=== PATIENT | female | born 1970 | race Caucasian/White ===

== ENCOUNTER 2016-11-12 19:59 | Emergency (ER) | payer OTHER ==
[~2016-11-12] VITALS: Ht 160 cm; Wt 89.4 kg
[2016-11-12 20:15] VITALS: BP 128/80
--- NOTE | 2016-11-12 21:25 | ED GI/GU/ABDOMINAL COMPLAINT ---
History of Present Illness General Chief Complaint: Female Urogenital Problems Stated Complaint: " PERIOD WON'T STOP , IT'S BEEN 2WEEKS" Source: patient, friend Exam Limitations: no limitations Vital Signs & Intake/Output Vital Signs & Intake/Output Vital Signs Date Time Temp Pulse Resp B/P Pulse O2 O2 Flow FiO2 Ox Delivery Rate 11/125 Room Air 11/12 2014 97.0 100 15 128/80 100 Room Air Allergies Coded Allergies: No Known Allergies (10/23/15) Triage Note: PT TO ED FOR VAGINAL BLEEDING X 2 WEEKS. STATES SHE HAD HER "NORMAL PERIOD FOR A WEEK AND NOW ITS JUST LIGHT VAGINAL BLEEDING" REPORTING SHE USES APPROX "LESS THAN ONE PAD A DAY". HAS NOT CALLED HER OB. NO ABD PAIN, NO NAUSEA, NO VOMITING. PT REPORTS SHE LOOKED HER SYMPTOMS UP ON THE INTERNET "AND CAME BECASUE IM SO WORRIED NOW" Triage Nurses Notes Reviewed? yes ? n Is pt currently ? No HPI: Patient is a 46-year-old female, , presents complaining of vaginal bleeding. Patient reports that she has been having vaginal bleeding for approximately 2 weeks. 2 weeks ago patient began with her normal menstrual period. The bleeding the patient normally experiences with her period ended approximately 5- 6 days ago but she has continued with light vaginal bleeding since then. Patient going through less than one pad per day. Patient has not seen a profile mill operator tape control in over 20 years. Patient's mother had a hysterectomy, so she does not know when her mother with gone through menopause. Pain is 0/10. Patient denies abdominal pain, pelvic pain, lightheadedness, weakness. (SHEYLA LIMON) Past History Travel History Traveled to [place] past 21 day No Medical History Any Pertinent Medical History? see below for history Neurological: NONE EENT: NONE Cardiovascular: NONE Respiratory: NONE Gastrointestinal: NONE Hepatic: NONE Renal: NONE Musculoskeletal: NONE Psychiatric: NONE Endocrine: NONE Blood Disorders: NONE Cancer(s): NONE WELL SERVICE FLOORPERSON/Reproductive: TUBAL LIGATION Surgical History Surgical History: tubal ligation Psychosocial History What is your primary language Vietnamese Tobacco Use: Never used ETOH Use: occasional use Illicit Drug Use: denies illicit drug use Family History Hx Contributory? No (SHEYLA LIMON) Review of Systems Review of Systems Constitutional: Denies: chills, fever. EENTM: Reports: no symptoms. Respiratory: Denies: cough, short of breath. Cardiovascular: Denies: chest pain, syncope. GI: Denies: abdominal pain, nausea, vomiting. Genitourinary: Reports: see HPI. Musculoskeletal: Reports: no symptoms. Skin: Reports: no symptoms. Neurological/Psychological: Reports: see HPI. Hematologic/Endocrine: Reports: see HPI. Immunologic/Allergic: Reports: no symptoms. (SHEYLA LIMON) Physical Exam Physical Exam General Appearance: well developed/nourished, alert, awake Head: atraumatic, normal appearance Eyes: Bilateral: normal appearance. Ears, Nose, Throat, Mouth: hearing grossly normal, moist mucous membrane Neck: normal inspection, supple, full range of motion Respiratory: no respiratory distress Cardiovascular: regular rate/rhythm Gastrointestinal: normal bowel sounds, soft, non-tender Back: normal inspection, normal range of motion Extremities: normal range of motion Neurologic/Psych: no motor/sensory deficits, awake, alert, oriented x 3, normal gait, normal mood/affect Skin: intact, normal color, warm/dry Core Measures ACS in differential dx? No Severe Sepsis Present: No Septic Shock Present: No (SHEYLA LIMON) Progress Differential Diagnosis: abnormal uterine bleeding, fibroids, malignancy, perimenopausal, hormonal imbalance Plan of Care: Orders Procedure Date/time Status PARTIAL THROMBOPLASTIN TIME 11/13 2043 Complete PROTHROMBIN TIME 11/13 2043 Complete HUMAN BETA HCG SCREEN 11/13 2043 Complete COMPREHENSIVE METABOLIC PANEL 11/13 2043 Complete CBC WITHOUT DIFFERENTIAL 11/13 2043 Complete Laboratory Tests 11/12/169: Anion Gap 10, Estimated GFR > 60, BUN/Creatinine Ratio 10.0, Glucose 87, Calcium 9.5, Total Bilirubin 0.5, AST 17, ALT 29, Alkaline Phosphatase 119, Total Protein 7.6, Albumin 4.3, Globulin 3.3, Albumin/Globulin Ratio 1.3, Total Beta HCG NEGATIVE, PT 10.2, INR 0.97, APTT 31, CBC w Diff NO MAN DIFF REQ, RBC 4.96, MCV 92.7, MCH 30.8, RDW 14.2, MPV 8.4, Gran % 69.0, Lymphocytes % 20.6, Monocytes % 9.3, Eosinophils % 1.1, Basophils % 0 L, Absolute Granulocytes 9.2 H, Absolute Lymphocytes 2.7, Absolute Monocytes 1.2 H, Absolute Eosinophils 0.1 , Absolute Basophils 0, PUBS MCHC 33.3 Patient hemodynamically stable, hemoglobin and hematocrit normal. Patient reports bleeding through less than one pad per day. Imaging deferred. Importance of gynecology follow-up was stressed. Appears stable for discharge. (SHEYLA LIMON) Initial ED EKG: none (SHEYLA LIMON) Departure Departure Disposition: HOME OR SELF CARE Condition: Stable Clinical Impression Primary Impression: Abnormal uterine bleeding Referrals: ALANNA CUEVAS,SHREE MIRZA MD,ZAHRAA Conn (PCP/Family) Additional Instructions: Follow up with the profile mill operator tape control this week for further evaluation. You may also contact Dr. Lehman(profile mill operator tape control) for an appointment and to establish a profile mill operator tape control. Return to the ER if bleeding through more than 1 pad per hour, fevers, abdominal pain or worsening of symptoms. Departure Forms: Customer Survey General Discharge Information (SHEYLA LIMON) PA/PACKAGE SORTER Co-Sign Statement Statement: ED Attending supervision documentation- [] I saw and evaluated the patient. I have also reviewed all the pertinent lab results and diagnostic results. I agree with the findings and the plan of care as documented in the PA's/PACKAGE SORTER's documentation. [x] I have reviewed the ED Record and agree with the PA's/PACKAGE SORTER's documentation. [] Additions or exceptions (if any) to the PAs/PACKAGE SORTER's note and plan are summarized below: [] (HERMANN HAIRSTON,REMEDIOS Juárez)
[2016-11-12 21:47] LABS: ABSOLUTE BASOPHIL COUNT 0 /CUMM (0.0-0.2); ABSOLUTE EOSINOPHIL COUNT 0.1 /CUMM (0.0-0.7); ABSOLUTE GRANULOCYTE CT 9.2 /CUMM (1.4-6.5); ABSOLUTE LYMPH COUNT 2.7 /CUMM (1.2-3.4); ABSOLUTE MONOCYTE COUNT 1.2 /CUMM (0.10-0.60); BASOPHIL % 0 % (0.0-2.0); EOSINOPHIL % 1.1 % (0-5); MEAN CORPUSCULAR HGB 30.8 PG (27.0-31.0); MEAN CORPUSCULAR HGB CONC 33.3 G/DL (33.0-37.0); MEAN CORPUSCULAR VOLUME 92.7 FL (81.0-99.0); MEAN PLATELET VOLUME 8.4 FL (7.4-10.4); PLATELET COUNT 293 /CUMM (130-400); RBC DISTRIBUTION WIDTH 14.2 % (11.5-14.5); RED BLOOD CELL CT 4.96 /CUMM (4.20-5.40); WHITE BLOOD CELL COUNT 13.3 /CUMM (4.8-10.8)
[2016-11-12 21:58] LABS: PT 10.2 SEC (9.4-12.5); PTT 31 SEC (25-37)
== END 2016-11-12 22:49 ==
LOC: ERH 19:59
PROVIDERS: Pediatrics
DX: N93.9 Abnormal uterine and vaginal bleeding, unspecified (principal)

== ENCOUNTER → 2016-11-16 | Day surgery (SDC) | payer OTHER ==
[~2016-11-16] VITALS: Ht 160 cm; Wt 89.8 kg
--- NOTE | 2016-11-20 14:13 | Operative Report ---
Operative/Inv Procedure Report Surgery Date: 11/16/16 Name of Procedure: D&C hysteroscopy Pre-Operative Diagnosis: Metromenorrhagia Post-Operative Diagnosis: Metromenorrhagia Estimated Blood Loss: scant Surgeon/Dumper: ERA KIRKLAND MD Anesthesia: moderate sedation Operative/Procedure Note Note: Patient was taken to the operating room placed in dorsal supine position. After adequate anesthesia, patient was prepped and draped for surgery. Examination under anesthesia was performed. CO2 tenaculum was placed on the anterior lip of the cervix gentle downward traction was used. The cervix was dilated 29 Hegar to left insertion of the hysteroscope. Under direct visualization to hysteroscopy was performed using gas hysteroscope was removed and endocervical curettage was performed. And endometrial curettage was performed. All instruments removed from the vagina. The counts were correct the patient was awakened from anesthesia. And transported to recovery room awake and alert. Findings: Slightly enlarged uterus no adnexal masses
== END ==
LOC: STS 01:36
DX: N92.1 Excessive and frequent menstruation with irregular cycle (principal); F17.200 Nicotine dependence, unspecified, uncomplicated
CPT/HCPCS: 81025; 88305; J0131; J2250